=== PATIENT | male | born 1970 | race Caucasian/White ===

== ENCOUNTER 2023-11-20 17:05 | Inpatient (IN) | payer BC ==
[~2023-11-20] VITALS: Ht 185.4 cm; Wt 67.8 kg
[2023-11-20 17:22] VITALS: PULSE 126; RESP 40; O2SAT 87
[2023-11-20 17:54] VITALS: PULSE 132; RESP 24; O2SAT 99
[2023-11-20] MEDS: IPRATROPIUM 0.02% 0.5 MG/2.5 ML NEBU INH ONE (17:54)
[2023-11-20] MEDS: ALBUTEROL 0.083% 2.5 MG/3 ML NEBU INH ONE (17:54)
[2023-11-20 18:57] LABS: BASOPHILS # (AUTO) 0.1 K/uL (0.00-0.22); BASOPHILS % (AUTO) 0.8 % (0.0-2.0); EOSINOPHILS # (AUTO) 0.1 K/uL (0-0.4); EOSINOPHILS % (AUTO) 0.6 % (0.0-4.0); HEMATOCRIT 26.5 % (36-52); HEMOGLOBIN 8.3 g/dL (12.0-18.0); LYMPHOCYTES # (AUTO) 0.7 K/uL (2.0-11.5); LYMPHOCYTES % (AUTO) 6.4 % (20.5-51.1); MEAN CORPUSCULAR HEMOGLOBIN 27 pg (27-31); MEAN CORPUSCULAR HGB CONC 31 g/dL (33-37); MONOCYTES # (AUTO) 1.5 K/uL (0.8-1.0); MONOCYTES % (AUTO) 13.2 % (1.7-9.3); PLATELET COUNT (AUTO) 299 K/uL (140-450); RED BLOOD CELL COUNT(AUTO) 3.08 MIL/uL (4.20-6.10); RED CELL DISTRIBUTION WIDTH 20.4 % (11.6-13.7); WHITE BLOOD COUNT (AUTO) 11.4 K/uL (4.8-10.8)
[2023-11-20] MEDS: FUROSEMIDE 20 MG/2 ML VIAL IVP ONE ×2 (19:11→20:09)
[2023-11-20 19:18] LABS: INR 1.05 (0.8-1.2); PARTIAL THROMBOPLASTIN TIME 30.1 secs (22-35.6)
[2023-11-20 19:21] LABS: ANION GAP 10.9 (8-16); CALCIUM 8.5 mg/dL (8.5-10.1); CARBON DIOXIDE 35.3 mmol/L (21-32); CREATININE 0.8 mg/dL (0.6-1.3); POTASSIUM 4.2 mmol/L (3.5-5.1)
[2023-11-20 19:27] LABS: ALANINE AMINOTRANSFERASE 8 U/L (12-78); ALKALINE PHOSPHATASE 81 U/L (50-136); ASPARTATE AMINOTRANSFERASE 27 U/L (15-37); BILIRUBIN,DIRECT 0.2 mg/dL (0.0-0.3); TOTAL BILIRUBIN 0.6 mg/dL (0.0-1.0); TOTAL PROTEIN, SERUM 6.6 g/dL (6.4-8.2)
[2023-11-20 19:29] LABS: FLU A ANTIGEN negative (NEGATIVE); FLU B ANTIGEN negative (NEGATIVE)
[2023-11-20 19:36] LABS: LACTIC ACID 3.4 mmol/L (0.4-2.0)
[2023-11-20] MEDS: ALBUTEROL SULFATE/IPRATROPIU 3 ML SOL IH ONE (19:58)
[2023-11-20 20:00] VITALS: PULSE 128; RESP 26; O2SAT 99
[2023-11-20] MEDS ORDERED: PIPERACILLIN/TAZOBACTAM 3.375 GM VIAL IV ONE (20:04)
[2023-11-20 20:09] LABS: APPEARANCE,URINE CLEAR (CLEAR); BILIRUBIN,URINE NEGATIVE (NEGATIVE); BLOOD, URINE NEGATIVE (NEGATIVE); COLOR,URINE YELLOW (YELLOW); LEUKOCYTE ESTERASE ,URINE NEGATIVE (NEGATIVE); NITRITE, URINE NEGATIVE (NEGATIVE); PROTEIN,URINE NEGATIVE (NEGATIVE); UGLUCOSE NEGATIVE (NEGATIVE); UROBILINOGEN,URINE 0.2 EU/dL (0.2 - 1)
[2023-11-20] MEDS: oxyCODONE/APAP 5/325 MG 1 TAB TAB PO ONE (20:10)
[2023-11-20] MEDS: methylPREDNISolone SS 125 MG/2 ML VIAL IVP ONE (20:11)
[2023-11-20] MEDS: PIPERACILLIN/TAZOBACTAM 3.375 GM in DEXTROSE 5% 50 ML IV ONE (20:14)
[2023-11-20] MEDS: bisacodyL 10 MG SUPP RC ONE (20:15)
[2023-11-20] MEDS ORDERED: MORPHINE SULFATE 4 MG/ML SYR IVP PRN (20:25)
[2023-11-20] MEDS ORDERED: HYDROcodone/APAP 5/325 MG 1 TAB TAB PO PRN (20:25)
[2023-11-20] MEDS ORDERED: ACETAMINOPHEN 325 MG TAB PO PRN (20:25)
[2023-11-20] MEDS: FUROSEMIDE 40 MG/4 ML VIAL IVP SCH (21:00)
[2023-11-20] MEDS ORDERED: PIPERACILLIN/TAZOBACTAM 2.25 GM in DEXTROSE 5% 50 ML IV SCH (21:00)
[2023-11-20] MEDS ORDERED: [UNRECOGNIZED DRUG - CODE] IV (21:55)
[2023-11-20] MEDS ORDERED: OXYC5TAB4 PO (21:55)
[2023-11-21] VITALS (10 sets, daily range): BP systolic 106–115; BP diastolic 62–69; PULSE 96–119; RESP 20–24; TEMP 96.8–97.5; O2SAT 96–100
[2023-11-21 00:51] LABS: LACTIC ACID 4.9 mmol/L (0.4-2.0)
[2023-11-21] MEDS: NACL 0.9% 500 ML IV PRN (00:59)
[2023-11-21] MEDS ORDERED: PIPERACILLIN/TAZOBACTAM 2.25 GM in DEXTROSE 5% 50 ML IV ONE ×2 (01:00→06:00)
[2023-11-21] MEDS: oxyCODONE 10 MG TABER PO PRN (02:42)
[2023-11-21] MEDS: LEVALBUTEROL 1.25 MG/0.5 ML NEBU INH PRN ×2 (03:17→19:45)
[2023-11-21] MEDS: IPRATROPIUM 0.02% 0.5 MG/2.5 ML NEBU INH PRN ×2 (03:17→19:45)
[2023-11-21 03:27] LABS: BASOPHILS # (AUTO) 0.1 K/uL (0.00-0.22); BASOPHILS % (AUTO) 0.6 % (0.0-2.0); EOSINOPHILS % (AUTO) 0.2 % (0.0-4.0); HEMATOCRIT 24.6 % (36-52); HEMOGLOBIN 7.5 g/dL (12.0-18.0); LYMPHOCYTES # (AUTO) 0.4 K/uL (2.0-11.5); LYMPHOCYTES % (AUTO) 3.5 % (20.5-51.1); MEAN CORPUSCULAR HEMOGLOBIN 26 pg (27-31); MEAN CORPUSCULAR HGB CONC 31 g/dL (33-37); MEAN CORPUSCULAR VOLUME 85.8 fL (80-94); MONOCYTES # (AUTO) 1.4 K/uL (0.8-1.0); MONOCYTES % (AUTO) 12.1 % (1.7-9.3); NEUTROPHILS # (AUTO) 9.9 K/uL (1.8-7.7); NEUTROPHILS % (AUTO) 83.6 % (42.2-75.2); PLATELET COUNT (AUTO) 254 K/uL (140-450); RED BLOOD CELL COUNT(AUTO) 2.86 MIL/uL (4.20-6.10); RED CELL DISTRIBUTION WIDTH 20.2 % (11.6-13.7); WHITE BLOOD COUNT (AUTO) 11.8 K/uL (4.8-10.8)
[2023-11-21 03:41] LABS: ANION GAP 10.6 (8-16); CALCIUM 7.9 mg/dL (8.5-10.1); CARBON DIOXIDE 37.7 mmol/L (21-32); POTASSIUM 4.3 mmol/L (3.5-5.1); TOTAL BILIRUBIN 0.6 mg/dL (0.0-1.0); TOTAL PROTEIN, SERUM 6.4 g/dL (6.4-8.2)
[2023-11-21] MEDS ORDERED: PIPERACILLIN/TAZOBACTAM 3.375 GM VIAL IV ONE ×2 (05:51→13:21)
[2023-11-21] MEDS: PIPERACILLIN/TAZOBACTAM 3.375 GM in DEXTROSE 5% 50 ML IV SCH (06:00)
[2023-11-21] MEDS ORDERED: VANCOMYCIN PER PHARMACY MC PRN (06:05)
[2023-11-21] MEDS ORDERED: VANCOMYCIN 1GM/DEXT 5% PREMIX 200 ML IV ONE (06:20)
[2023-11-21] MEDS ORDERED: PANTOPRAZOLE 40 MG INJ VIAL ONE (07:39)
[2023-11-21] MEDS ORDERED: ENOXAPARIN 40 MG/0.4 ML SYR SUBQ ONE (07:40)
[2023-11-21] MEDS ORDERED: VANCOMYCIN 1,000 MG VIAL ONE (07:57)
[2023-11-21] MEDS: VANCOMYCIN 1,000 MG in DEXTROSE 5% 250 ML IV SCH (08:23)
[2023-11-21] MEDS: PANTOPRAZOLE 40 MG INJ VIAL IVP SCH (08:25)
[2023-11-21] MEDS: ENOXAPARIN 40 MG/0.4 ML SYR SUBQ SCH (08:25)
[2023-11-21] MEDS ORDERED: MIRABULK PO (08:29)
[2023-11-21 09:07] LABS: LACTIC ACID 2.4 mmol/L (0.4-2.0)
[2023-11-21] MEDS: POLYETHYLENE GLYCOL 17 GM/PKT PO SCH (09:16)
[2023-11-21] MEDS: oxyCODONE 5 MG TAB PO PRN (10:31)
[2023-11-21] MEDS ORDERED: DEXTROSE 50% 50 ML SYR IVP PRN (11:40)
[2023-11-21] MEDS: methylPREDNISolone SS 40 MG/ML VIAL IVP SCH (13:00)
[2023-11-21] MEDS: BLOOD GLUCOSE MONITORING 1 DEV DEV FS SCH (16:30)
[2023-11-21] MEDS: PIPERACILLIN/TAZOBACTAM 3.375 GM VIAL IV ONE (20:18)
[2023-11-21] MEDS: VANCOMYCIN 1,000 MG VIAL ONE (20:21)
[2023-11-22] VITALS (12 sets, daily range): BP systolic 106–120; BP diastolic 65–70; PULSE 97–114; RESP 20–22; TEMP 97.4–98; O2SAT 92–99
[2023-11-22] MEDS: HYDRAGUARD CREAM TP SCH (01:49)
[2023-11-22] MEDS: PIPERACILLIN/TAZOBACTAM 3.375 GM VIAL IV ONE (05:38)
[2023-11-22 08:18] LABS: ANION GAP 4.1 (8-16); CALCIUM 7.9 mg/dL (8.5-10.1); CREATININE 0.8 mg/dL (0.6-1.3); POTASSIUM 3.6 mmol/L (3.5-5.1)
[2023-11-22 08:32] LABS: CARBON DIOXIDE 43.5 mmol/L (21-32)
[2023-11-22] MEDS ORDERED: MORPHINE SULFATE 2 MG/ML SYR IVP PRN (13:10)
[2023-11-22] MEDS: MORPHINE SULFATE 2 MG/ML SYR IVP PRN (14:59)
[2023-11-23] VITALS (10 sets, daily range): BP systolic 119–133; BP diastolic 68–77; PULSE 67–113; RESP 18–24; TEMP 96.6–97.8; O2SAT 85–99
[2023-11-23] MEDS: LORazepam 2 MG/ML VIAL IVP PRN (04:17)
[2023-11-23 09:14] LABS: ANION GAP 6.1 (8-16); CREATININE 0.8 mg/dL (0.6-1.3); POTASSIUM 3.9 mmol/L (3.5-5.1)
[2023-11-23 09:17] LABS: CARBON DIOXIDE 44.8 mmol/L (21-32)
[2023-11-24] VITALS (12 sets, daily range): BP systolic 109–135; BP diastolic 68–81; PULSE 82–110; RESP 18–24; TEMP 96.4–98.2; O2SAT 95–100
[2023-11-24 07:30] LABS: CALCIUM 8.3 mg/dL (8.5-10.1); CREATININE 0.7 mg/dL (0.6-1.3); POTASSIUM 4.2 mmol/L (3.5-5.1)
[2023-11-24 07:49] LABS: ANION GAP -7.7 (8-16); CARBON DIOXIDE 59.9 mmol/L (21-32)
[2023-11-24] MEDS: FOAM DRESSING TP SCH (09:04)
[2023-11-24] MEDS: INSULIN LISPRO SLIDING SCALE 100 UNITS/ML VIAL SUBQ PRN (11:57)
[2023-11-24 20:01] LABS: BLOOD GAS PCO2 68.6 mmHg (35-45); BLOOD GAS PH 7.449 (7.35-7.45); BLOOD GAS PO2 110.5 mmHg (75-100)
[2023-11-24 20:02] LABS: BLOOD GAS BASE EXCESS 20.2 mmol/L (-2.0-2.0); BLOOD GAS HCO3 46.5 mmol/L (22-26); BLOOD GAS O2 SAT% 98.5 % (92.0-98.5)
[2023-11-25] VITALS (13 sets, daily range): BP systolic 110–125; BP diastolic 63–74; PULSE 81–115; RESP 18–20; TEMP 97.2–98.9; O2SAT 92–100
[2023-11-25 06:58] LABS: CALCIUM 8.2 mg/dL (8.5-10.1); CREATININE 0.7 mg/dL (0.6-1.3); POTASSIUM 3.6 mmol/L (3.5-5.1)
[2023-11-25 07:16] LABS: ANION GAP -22.6 (8-16); CARBON DIOXIDE 78.2 mmol/L (21-32)
[2023-11-25] MEDS: acetaZOLAMIDE sodium 500 MG VIAL IVP SCH (12:38)
[2023-11-26] VITALS: BP 125/74; PULSE 152; PULSE 168; RESP 16; TEMP 97.6; O2SAT 93
[2023-11-26] MEDS: METOPROLOL 5 MG/5 ML VIAL IV SCH (00:08)
[2023-11-26 04:00] VITALS: BP 88/46; PULSE 150; RESP 18; TEMP 97.2; O2SAT 80
== END 2023-11-26 12:45 | DRG 871 ==
LOC: MED 17:05 → MTU 20:32 → MMU 11-26 10:50
PROVIDERS: ADMIT Student in an Organized Health Care Education/Training Program; ATTEND Student in an Organized Health Care Education/Training Program
PROC: 5A0935A Assistance with Respiratory Ventilation, Less than 24 Consecutive Hours, High Flow/Velocity Cannula (ICD-10-PCS; 2023-11-20)
PROC: 0W9B3ZZ Drainage of Left Pleural Cavity, Percutaneous Approach (ICD-10-PCS; principal; 2023-11-21)
PROC: 5A0935A Assistance with Respiratory Ventilation, Less than 24 Consecutive Hours, High Flow/Velocity Cannula (ICD-10-PCS; 2023-11-21)
DX: A41.9 Sepsis, unspecified organism (principal); E43 Unspecified severe protein-calorie malnutrition; J18.9 Pneumonia, unspecified organism; J96.21 Acute and chronic respiratory failure with hypoxia; E87.20 Acidosis, unspecified; J90 Pleural effusion, not elsewhere classified; Z68.1 Body mass index [BMI] 19.9 or less, adult; Z20.822 Contact with and (suspected) exposure to COVID-19; Z66 Do not resuscitate; R65.20 Severe sepsis without septic shock; C73 Malignant neoplasm of thyroid gland; D64.9 Anemia, unspecified; R62.7 Adult failure to thrive; Z79.899 Other long term (current) drug therapy; Z85.850 Personal history of malignant neoplasm of thyroid
CPT/HCPCS: 36415; 36600; 71045; 71250; 76942; 80048; 80053; 80076; 80202; 81003; 82803; 82948; 83605; 83880; 84484; 85025; 85610; 85730; 87040; 87081; 93005; 94640; 96365; 96375; 99291; C9113; J1120; J1650; J1815; J1940; J2001; J2060; J2270; J2543; J2920; J2930; J3370; J3490; J7060; J7612; J7613; J7644; Q0092